=== PATIENT | female | born 1945 | race Caucasian/White ===

== ENCOUNTER → 2017-01-17 | Outpatient (CLI) | payer MEDICARE, OTHER ==
--- NOTE | 2017-01-17 16:02 | RADIOLOGY REPORT PS360 ---
[id number] VIEWS HISTORY: RT RIB PAIN ORDERING PHYSICIAN: Hyun BRUNSON PATIENT AGE: 71 years COMPARISON: None FINDINGS: A frontal view of the chest shows no acute finding. Multiple views of the right ribs were obtained. There is a nondisplaced fracture involving the anterior aspect of the right fifth rib. No other significant anomalies evident. IMPRESSION: Nondisplaced right fifth rib fracture
== END ==
LOC: RAD 15:01
DX: R07.81 Pleurodynia (principal)